=== PATIENT | male | born 1985 | race Two or more races ===

== ENCOUNTER 2024-09-01 10:04 | Emergency (ER) | payer MEDICAID, SELFPAY ==
[2024-09-01 10:16] VITALS: BP 126/90; PULSE 97; RESP 18; TEMP 36.6; O2SAT 96; BMI 31.5
--- NOTE | 2024-09-01 10:47 | EKG_ITS ---
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
--- NOTE | 2024-09-01 10:47 | XR_ITS ---
Exam: Chest PA, lateral 2 views Technique: Chest upright PA lateral 2 views Date and time of exam: 09/01/2024, 11:25 AM INDICATION: Chest pain COMPARISON: 10/16/2023 Findings: Normal heart size. No mediastinal adenopathy. No acute fracture No pulmonary edema or pneumonia. Impression: No active disease.
--- NOTE | 2024-09-01 10:47 | PD.EDRME ---
Rapid Medical Screening Exam RME Arrival date/time: 09/01/24 10:04 39-year-old male presents to the emergency department today for complaint of chest pain Chief Complaint: Chest Pain Vital signs: Vital Signs Temperature 97.8 F 09/01/24 10:16 Pulse Rate 97 09/01/24 10:16 Respiratory Rate 18 09/01/24 10:16 Blood Pressure 126/90 H 09/01/24 10:16 Pulse Oximetry (%) 96 09/01/24 10:16 Oxygen Delivery Method Room Air 09/01/24 10:16
[2024-09-01 11:11] LABS: Basophils # (Auto) 0.1 Thou/mm3 (0.0-0.2); Basophils % (Auto) 1 % (0-2.5); Eosinophils # (Auto) 0.1 Thou/mm3 (0.0-0.5); Eosinophils % (Auto) 1 % (0-10); Hematocrit 52.9 % (41.0-53.0); Hemoglobin 19.2 g/dL (13.5-16.0); Immature Granulocytes % (Auto) 0 % (0-0); Immature Granulocytes Auto 0.03 Thou/mm3 (0.00-0.00); Lymphocytes # (Auto) 2.3 Thou/mm3 (1.0-4.8); Lymphocytes % (Auto) 26 % (10-50); Mean Corpuscular HGB Conc 36.3 g/dl (31.0-37.0); Mean Corpuscular Hemoglobin 29.6 pg (25.0-35.0); Mean Corpuscular Volume 82 fL (80-100); Monocytes # (Auto) 0.7 Thou/mm3 (0.0-0.8); Monocytes % (Auto) 8 % (0-12); Neutrophils # (Auto) 5.9 Thou/mm3 (1.8-7.7); Neutrophils % (Auto) 64 % (37-80); Nucleated Red Blood Cell % 0 /100 WBC (0); Platelet Count 246 Thou/mm3 (140-440); RDW Standard Deviation 36.7 fL (35.1-43.9); Red Blood Count 6.49 Miln/mm3 (4.50-5.90); White Blood Count 9.2 Thou/mm3 (3.8-10.6)
[2024-09-01 11:32] LABS: Alanine Aminotransferase 24 U/L (10-49); Albumin, Serum 4.6 gm/dL (3.5-5.0); Albumin/Globulin Ratio 1.3 (1.2-2.2); Alkaline Phosphatase 87 U/L (46-116); Anion Gap 11 (7-16); Aspartate Amino Transferase 19 U/L (0-34); BUN/Creatinine Ratio 15 Ratio (12-20); Bilirubin,Total 1.1 mg/dL (0.3-1.2); Blood Urea Nitrogen 19 mg/dL (9-23); Calcium 9.6 mg/dL (8.3-10.6); Calcium (Corrected) 9.6 mg/dL (8.5-10.1); Chloride 102 mMol/L (98-107); Creatinine (Component) 1.3 mg/dL (0.6-1.3); Estimated Creatinine Clearance 90.3 mL/min (>60); Globulin 3.5 gm/dL (2.3-3.5); Glucose 164 mg/dL (74-106); Magnesium 1.8 mg/dL (1.6-2.6); Osmolality,Calculated 280 (275-295); Potassium 3.8 mMol/L (3.4-5.1); Sodium 137 mMol/L (136-145); Total Protein 8.1 gm/dL (5.7-8.2); Troponin I < 0.020 ng/mL (0.0-0.045); eGFR > 60 See Note
[2024-09-01 11:48] LABS: B-Type Natriuretic Peptide < 20 pg/mL (0-100)
--- NOTE | 2024-09-01 12:15 | PD.EDCHEST ---
ED Chest Pain RME/HPI General Chief Complaint: Chest Pain Stated Complaint: Chest pain and difficulty breathing x 3 days Time Seen by Provider: 09/01/24 12:04 Arrival date/time: 09/01/24 10:04 RME / HPI RME / HPI narrative: 39-year-old male patient with significant history of CVA came in for evaluation regarding left-sided chest pain. Onset of symptoms for the last 3 days as left-sided chest pain, associated with shortness of breath, especially with chest pain. Patient denies any diaphoresis. Denies any cough denies any other complaints. No medication was taken prior to arrival. Related Data Home Medications ?Medication ?Instructions ?Recorded ?Confirmed aspirin 81 mg tablet,delayed 81 mg PO QDAY 03/07/23 03/07/23 release atorvastatin 80 mg tablet 80 mg PO QDAY 03/07/23 03/07/23 carvedilol 25 mg tablet 25 mg PO BID 03/07/23 03/07/23 diclofenac potassium 50 mg tablet 50 mg PO QDAY 03/07/23 03/07/23 doxepin 10 mg capsule 10 mg PO HS 03/07/23 03/07/23 hydrochlorothiazide 25 mg tablet 25 mg PO QDAY 03/07/23 03/07/23 ketoconazole 2 % topical cream 1 applic topical BID 03/07/23 03/07/23 lisinopril 20 mg tablet 20 mg PO QDAY 03/07/23 03/07/23 methocarbamol 500 mg tablet 500 mg PO TID PRN Muscle Spasm 03/07/23 03/07/23 nifedipine 30 mg tablet,extended 30 mg PO QDAY 03/07/23 03/07/23 release quetiapine 25 mg tablet (Seroquel) 12.5 mg PO BID 03/07/23 03/07/23 Previous Rx's ?Medication ?Instructions ?Recorded metformin 1,000 mg tablet 1,000 mg PO BID #60 tabs 09/28/20 Allergies Allergy/AdvReac Type Severity Reaction Status Date / Time vancomycin Allergy Severe Rash Verified 09/01/24 10:09 Review of Systems Review of Systems Narrative Review of Systems: Review of system reviewed and within normal limits except mentioned in HPI ED Exam Narrative Physical exam: VITAL SIGNS: Reviewed. GENERAL APPEARANCE: Alert and interactive, follows commands, no acute distress, HEAD AND FACE: Non-traumatic. ENT: PERRL, pink conjunctivitis, eyelid no trauma, Mucous membrane moist. NECK: Supple, nontender, no nuchal rigidity. CHEST: No tenderness, no crepitus, no paradoxical movement, no retractions. LUNGS: Clear, well ventilated, symmetric, no rales, no wheezing, no ronchi, no stridor, good breath sounds bilaterally. HEART: Regular rate, regular rhythm, no murmur, no gallops. ABDOMEN: Soft, positive bowel sounds, nondistended, no guarding, nontender, no rebound, no masses, RECTAL: Deferred. GENITAL: Deferred. NEUROLOGICAL: Residual neurologic deficit noted on the right, MUSCULOSKELETAL: low back nontender, full range of motion. EXTREMITIES: Nontender, full range of motion. SKIN: Color pink, dry, no rash, no lacerations, no abrasions, no contusions. LYMPHATICS: Deferred. Course Quality Measures none Orders Category Date Time Status EKG (ED ONLY) *Do not use* NOW Care 09/01/24 10:47 Completed EKG (ED Only) Stat Exams 09/01/24 10:47 Ordered XR chest 2V Stat Exams 09/01/24 10:47 Completed B-Type Natriuretic Peptide Stat Lab 09/01/24 10:58 Completed CBC Stat Lab 09/01/24 10:58 Completed Comprehensive Metabolic Panel Stat Lab 09/01/24 10:58 Completed Drug Screen,Urine Stat Lab 09/01/24 10:47 Ordered Magnesium Stat Lab 09/01/24 10:58 Completed Troponin I Stat Lab 09/01/24 10:58 Completed Vital Signs Vital signs: Vital Signs Temperature 97.8 F 09/01/24 10:16 Pulse Rate 97 09/01/24 10:16 Respiratory Rate 18 09/01/24 10:16 Blood Pressure 126/90 H 09/01/24 10:16 Pulse Oximetry (%) 96 09/01/24 10:16 Oxygen Delivery Method Room Air 09/01/24 10:16 Chest Pain MDM Narrative MDM Narrative:: 39-year-old male patient with significant history of CVA came in for evaluation regarding left-sided chest pain. Onset of symptoms for the last 3 days as left-sided chest pain, associated with shortness of breath, especially with chest pain. Patient denies any diaphoresis. Denies any cough denies any other complaints. No medication was taken prior to arrival. Patient's workup today all came back normal including normal troponin. EKG also showed normal sinus rhythm, no ST segment elevation or depression noted. I personally reviewed and interpreted the x-ray of this patient. There is no acute abnormalities found, no infiltrates no pneumothorax no hemothorax normal chest x-ray. Review of other structures was without significant abnormal findings also. I additionally reviewed the radiologist report and agree with the interpretation. Patient data External records reviewed:: None Clinical information provided by:: patient and family Social determinants that could affect healthcare access:: none Patient has the following chronic illnesses:: CVA How is presenting disease/condition affected by chronic disease/condition?: uneffected by Evaluation data The following diagnostics were reviewed and interpreted by me:: lab results, radiology exam(s) and EKG tracing(s) Lab and/or radiology exams considered but not ordered:: None Interpretation Summary: See results in MDM Medications / Prescriptions Medications or Prescriptions considered but not ordered:: None Medication administrations:: None Consultations Consultation(s) initiated? (list below): No Diagnosis Chest Pain Differential Diagnosis: pneumothorax, atypical chest pain and costochondritis Most likely diagnosis given after review of the tests above:: Chest pain, muscular Admission Indicated Admission indicated?: not indicated Admission Request Was there a request for admission?: No Disposition Plan Disposition Plan: Discharge Discharge Attestation Discharge Attestation: The patient and all family members were given an opportunity to ask questions and understood the discharge instructions. Discharge instructions specifically effects, indications for sooner follow up or return to the emergency department, and the expected course of current diagnosis. Patient condition: Stable Discharge Plan Plan Patient Disposition: HOME (Self Care) Disposition Comment: Stable Prescriptions/Referrals Prescriptions/Med Rec: No Action metformin 1,000 mg tablet 1,000 mg PO BID Qty: 60 0RF quetiapine [Seroquel] 25 mg Tablet 12.5 mg PO BID methocarbamol 500 mg Tablet 500 mg PO TID PRN (Reason: Muscle Spasm) atorvastatin 80 mg Tablet 80 mg PO QDAY carvedilol 25 mg Tablet 25 mg PO BID Rx Instructions: must administer with a meal/food nifedipine 30 mg Tablet Extended Release 30 mg PO QDAY doxepin 10 mg Capsule 10 mg PO HS aspirin 81 mg Tablet,Delayed Release (Dr/Ec) 81 mg PO QDAY diclofenac potassium 50 mg Tablet 50 mg PO QDAY hydrochlorothiazide 25 mg Tablet 25 mg PO QDAY ketoconazole 2 % Cream 1 applic TOPICAL BID lisinopril 20 mg tablet 20 mg PO QDAY Referrals: Telly)Jackie PA-C [Primary Care Provider] - In 1 week Problem List Clinical Impression: Muscular chest pain Patient/Caregiver Discharge Instructions Discharge Activity: activity as tolerated Education Materials: Understanding the Pain Response Additional Instructions: Thank you for the opportunity for serving you today. You are stable for discharged . You are advised to: Follow-up with your PCP in 1 to 2 days Return to ED for worsening of symptoms Increase oral fluids Take medication as prescribed Print Language: Mohawk Stand Alone Forms: Kelly Award Info., Patient Portal Info Letter
== END 2024-09-01 12:43 | disposition home or self-care (01) ==
PROVIDERS: Nurse Practitioner Primary Care; Emergency Provider Emergency Medicine; PCP Physician Assistant
DX: R07.89 Other chest pain (principal); Z86.73 Personal history of transient ischemic attack (TIA), and cerebral infarction without residual deficits
CPT/HCPCS: 36415; 71046; 80053; 80307; 83735; 83880; 84484; 85025; 93005; 99283